=== PATIENT | female | born 1985 | race Caucasian/White ===

== ENCOUNTER 2016-08-01 14:51 | Inpatient (IN) ==
[2016-08-01] MEDS ORDERED: BRETHINE SUBQ PRN (21:18)
[2016-08-01] MEDS ORDERED: ZOFRAN IV PRN (21:18)
[2016-08-01] MEDS ORDERED: STADOL IV PRN (21:18)
[2016-08-01] MEDS ORDERED: SODIUM CHLORIDE 0.9% INJ PRN (21:18)
[2016-08-01] MEDS ORDERED: PHENERGAN INJ PRN (21:18)
[2016-08-01] MEDS ORDERED: DEMEROL INJ PRN (21:18)
[2016-08-01] MEDS: LR 1,000 ML IV SCH (21:56)
[2016-08-01 22:04] LABS: URINE SOURCE VOIDED
[2016-08-01 22:04] LABS: MANUAL DIFF NEEDED? NO
[2016-08-01 22:06] LABS: BILIRUBIN URINE NEGATIVE (NEGATIVE); BLOOD URINE NEGATIVE (NEGATIVE); CLARITY CLEAR (CLEAR); COLOR YELLOW; GLUCOSE URINE NEGATIVE (NEGATIVE); LEUKOCYTES URINE 1+ (NEGATIVE); NITRITE URINE NEGATIVE (NEGATIVE); PROTEIN URINE NEGATIVE (NEGATIVE); SP GRAVITY URINE 1.005; UROBILINOGEN URINE NORMAL
[2016-08-01 22:07] LABS: BASO% 0.3 % (0.0-0.8); EOS# 0.27 X1000 (0.0-0.7); EOS% 1.8 % (0.0-10.0); HEMATOCRIT 32.8 % (37.0-47.0); HEMOGLOBIN 10.4 g/dL (12.0-16.0); IMM GRAN# 0.03 X1000 (0.0-0.04); IMM GRAN% 0.2 % (0.0-0.5); LYMPH# 3.85 X1000 (1.2-3.4); LYMPH% 26.1 % (20.5-51.1); MCH 26.1 PG (27-31); MCHC 31.7 g/dL (33-37); MCV 82.4 FL (81-99); MONO% 7.5 % (1.7-9.3); MPV 10.3 FL (7.4-10.4); NEUT% 64.1 % (42.2-75.2); PLT 313 X1000 (130-400); RBC 3.98 XMIL (4.2-5.4)
[2016-08-02] MEDS ORDERED: CERVIDIL VAGINAL VAG ONE (00:01)
[2016-08-02] MEDS: STADOL IV PRN ×2 (01:02→03:36)
[2016-08-02] MEDS: AMBIEN PO PRN ×2 (01:03→21:45)
[2016-08-02] MEDS: LR 1,000 ML IV SCH ×2 (01:12→04:00)
[2016-08-02] MEDS ORDERED: FENTANYL-BUPIV-NS 2 MCG-0.1% 200 ML EPIDURAL PRN (04:10)
[2016-08-02] MEDS ORDERED: MARCAINE 0.25% PF INJ PRN (04:11)
[2016-08-02] MEDS ORDERED: TYLENOL PO PRN (05:49)
[2016-08-02] MEDS ORDERED: PEPCID PO PRN (05:49)
[2016-08-02] MEDS ORDERED: PEPCID IV PRN (05:49)
[2016-08-02] MEDS ORDERED: KEFZOL 1 GM/D5W 1 GM/50 ML IVPB IV PRN (05:49)
[2016-08-02] MEDS ORDERED: PITOCIN 30 UNITS/LR 30 UNITS/500 ML IV.SOLN IV SCH (05:50)
[2016-08-02] MEDS ORDERED: SODIUM CHLORIDE 0.9% INJ SCH (06:00)
[2016-08-02] MEDS ORDERED: XYLOCAINE-MPF 1% ONE (06:01)
[2016-08-02] MEDS ORDERED: MINERAL OIL ONE (06:01)
[2016-08-02] MEDS ORDERED: BOOSTRIX VACCINE IM ONE (07:41)
[2016-08-02] MEDS ORDERED: PERCOCET-10 PO PRN (07:41)
[2016-08-02] MEDS ORDERED: PERI MEDS (DERMOPLAST/NUPERCAINAL/TUCKS) MISC PRN (07:41)
[2016-08-02] MEDS ORDERED: M-M-R II VACCINE SUBQ ONE (07:41)
[2016-08-02] MEDS ORDERED: HYDROXYZINE IM PRN (07:41)
[2016-08-02] MEDS ORDERED: HYDROXYZINE PO PRN (07:41)
[2016-08-02] MEDS ORDERED: PERCOCET-5 PO PRN (07:41)
[2016-08-02] MEDS ORDERED: PITOCIN 30 UNITS/LR 30 UNITS/500 ML IV.SOLN IV ONE (07:41)
[2016-08-02] MEDS ORDERED: PITOCIN 20 UNITS/LR 20 UNITS/1,000 ML IV.SOLN IV SCH (07:41)
[2016-08-02] MEDS ORDERED: AMBIEN PO PRN (07:41)
[2016-08-02] MEDS ORDERED: MINERAL OIL PO PRN (07:41)
[2016-08-02] MEDS ORDERED: BENADRYL IV PRN (07:41)
[2016-08-02] MEDS ORDERED: BENADRYL PO PRN (07:41)
[2016-08-02] MEDS ORDERED: CYTOTEC PO PRN (07:41)
[2016-08-02] MEDS ORDERED: PITOCIN IM PRN (07:41)
[2016-08-02] MEDS ORDERED: XYLOCAINE-MPF 1% INJ PRN (07:41)
[2016-08-02] MEDS: PERICOLACE PO SCH (21:45)
[2016-08-02] MEDS: MOTRIN PO PRN (21:45)
[2016-08-03 06:47] LABS: HEMATOCRIT 29.7 % (37.0-47.0); HEMOGLOBIN 9.3 g/dL (12.0-16.0); MCH 26.2 PG (27-31); MCHC 31.3 g/dL (33-37); MCV 83.7 FL (81-99); MPV 10.7 FL (7.4-10.4); RBC 3.55 XMIL (4.2-5.4)
[2016-08-03] MEDS: MOTRIN PO PRN (18:07)
[2016-08-03] MEDS: PERICOLACE PO SCH (20:38)
[2016-08-04 08:56] VITALS: BP 107/66
== END 2016-08-04 12:00 | disposition home or self-care (01) ==
LOC: P.LD 21:14 → P.WC 08-02 14:10
PROVIDERS: ADMIT Obstetrics & Gynecology; ATTEND Obstetrics & Gynecology